=== PATIENT | female | born 1950 ===

== ENCOUNTER 2025-01-04 10:36 | Outpatient (AMB) | payer MEDICARE, SELFPAY ==
--- OUTSIDE RECORDS SUMMARY | 2019-05-04 13:05 | XMS_ITS | Encounter Summary ---
Author Organization [facility] Address [address] [facility] [address] [place] [address] Phone Care Team Providers Care [place] Name Role Phone Christie Campos MD Primary Care Provider [phone] Encounter Details Date Type Department Care Team (Late st Contact Info) Description 05/04/2019 12:05 PM EST Hospital Encounter [facility] [address] [place] [phone] Conner Shaffer, CIELO [address] [place] [address] [place] [address] Social History Tobacco Use Types Packs/Day Years [...] PM EST No acute fracture. POS - [id number] Narrative 05/04/2019 12:23 PM EST HISTORY: As [...] swelling. IMPRESSION: No acute fracture. POS - [id number] us Conner Shaffer [employer] SUPERVISOR IMG XR UPPER EXTREMITY Final Re sult documented in this encounter Visit Diagnoses Not on filedocumented in this encounter Care Teams [place] Relationship Specialty Start Date End Date Christie Campos MD PCP - General Internal Medicine 05/04/19 documented as of this encounter Additional Source Comments The information contained in this document represents components of the legal health record. It is not the complete legal health record.[facility]
--- OUTSIDE RECORDS SUMMARY | 2025-01-04 12:46 | XMS_ITS | Encounter Summary ---
Author Organization [facility] [address] Care Team Providers Care Meat Supervisor Name Role Phone Radha Bertrand Primary Care Provider Encounter Details Date Type Department Care Team (Late st Contact Info) Description 12/30/2024 Telephone [facility] - [facility] [address] [facility] [address] [place] [phone] Candelaria Sneed MD [address] [place] [address] [place] [phone] Social History Tobacco Use Types Packs/Day Years Used Date Smoking Tobacco: Never Smokeless Tobacco: Never Alcohol Use Standard Drinks/Week Comments Yes 0 (1 standard drink = 0.6 oz pur e alcohol) Comments No Sex and Gender Information Value Date Recorded Sex Assigned at Not on file Legal Sex Female 10:20 PM EST Gender Identity Not on file Sexual Orientation Not on file documented as of this encounter Progress Notes * Galdino Quintana - 12/31/2024 3:36 PM EDT Patient called and rescheduled for 02/22/25. * Dmitry Conteh - 12/30/2024 11:04 AM EDT Called patient to reschedule appointment with Dr. Sneed on 02/19, Dr. Sneed out of office. No answer, left message on machine for patient to call back when available. If patient calls back please reschedule to 02/22/2025 documented in this encounter Plan of Treatment Upcoming Encounters Date Type Department Care Team (Late st Contact Info) Description 02/22/2025 10:20 AM EDT Office Visit [facility] - [address] [facility] [address] [place] [phone] Candelaria Sneed MD [address] [place] [address] Dr [place] [address] [place] [phone] 12/20/2025 10:30 AM EDT Appointment [facility] [address] [place] [phone] documented as of this encounter Visit Diagnoses Not on filedocumented in this encounter Care Teams Meat Supervisor Relationship Specialty Start Date End Date Radha Bertrand PA [address] [place] [phone] PCP - General 09/18/24 documented as of this encounter
--- OUTSIDE RECORDS SUMMARY | 2025-01-04 12:46 | XMS_ITS | Clinical Summary ---
Author Organization [facility] Address [address] [facility] [address] [place] [address] Phone Care Team Providers Care Watch Crystal Molder Name Role Phone Christie Campos MD Primary Care Provider Allergies No known active allergies Medications atenolol (TENORMIN) 25 MG tablet Take 25 mg by mouth daily. 04/25/2019 Active finasteride (PROSCAR) 5 mg tablet Take 5 mg by mouth daily. 04/25/2019 Active lansoprazole (PREVACID) 30 MG capsule Take 30 mg by mouth. 02/27/2019 Active levothyroxine (SYNTHROID, LEVOTHROID) 75 MCG tablet Take 75 mcg by mouth daily. 02/25/2019 Active rosuvastatin (CRESTOR) 20 MG tablet Take 20 mg by mouth daily. 04/27/2019 Active Social History Tobacco Use Types Packs/Day Years [...] on file Sexual Orientation Not on file Last Filed Vital Signs Vital Sign Reading Time Taken Comments Blood Pressure 130/79 05/04/2019 11:55 AM EST Pulse 85 05/04/2019 11:55 AM EST Temperature 36.8 C (98.2 F) 05/04/2019 11:55 AM EST Respiratory Rate 18 05/04/2019 11:55 AM EST Oxygen Saturation 98% 05/04/2019 11:55 AM EST Inhaled Oxygen Concentration - - Weight - - Height - - Body Mass Index - - Plan of Treatment Health Maintenance Due Date Last Done Comments LIPID PANEL 1951 TSH LEVEL 1951 DEPRESSION SCREENING 1963 HEPATITIS C SCREENING 1969 SMOKING STATUS SCREENING (Once After 26 Yrs) 1977 MAMMOGRAM 1991 COLOGUARD 1996 COLONOSCOPY 1996 COLORECTAL CANCER SCREENING 1996 FIT TEST 1996 FOBT 1996 SIGMOIDOSCOPY 1996 VIRTUAL COLONOSCOPY 1996 OSTEOPOROSIS SCREENING INITIAL (ONE-TIME) 2016 Adult Td,Tdap Booster 07/26/2018 07/26/2008 INFLUENZA VACCINE (#1) 2024 0, 01/31/2018, 02/09/2014, Additional history exists COVID-19 VACCINE (2 - 2024- season) 2024 06/29/2020 RSV VACCINE (1 - 1-dose 75+ series) 2026 PNEUMOCOCCAL VACCINES (50+ years) Completed 06/13/2017, 04/18/2016 ZOSTER VACCINES Completed 02/23/2020, 11/28, 03/08/2011 HEPATITIS A VACCINES Aged Out No long er eligible based on patient's age to complete this topic HIB VACCINES Aged Out No longer eligi ble based on patient's age to complete this topic MENINGOCOCCAL VACCINES (ACWY) Aged Out No longer eligible based on patient's age to complete this topic MENINGOCOCCAL VACCINES (B) Aged Out N o longer eligible based on patient's age to complete this topic Medical Devices Not on file Insurance MEDICARE PART A & B Member Subscriber Plan / Payer (Ef fective 2018-Present) Name:Yolis Huertas Member ID:[id number] Relation to Subscriber:Self Name:Yolis Huertas Subscriber ID:[id number] Payer ID:[id number] Group ID:Not on file Type:Medicare Address: [employer] [address] [place] [phone] [facility] MEDICARE SUPPLEMENT MEDICARE PART A & B [facility] MEDICARE SUPPLEMENT MEDICARE PART A & B MEDICARE SUPPLEMENT MEDICARE PART A & B [facility] MEDICARE SUPPLEMENT MEDICARE PART A & B [facility] MEDICARE SUPPLEMENT MEDICARE PART A & B Member Subscriber Plan / Payer (Ef fective 2018-Present) Name:Yolis Huertas Member ID:[id number] Relation to Subscriber:Self Name:Yolis Huertas Subscriber ID:[id number] Payer ID:[id number] Group ID:Not on file Type:Medicare Address: [employer] [address] [place] [id number] [facility] MEDICARE SUPPLEMENT MEDICARE PART A & B [facility] MEDICARE SUPPLEMENT MEDICARE PART A & B [id number] [place] [address] MEDICARE SUPPLEMENT MEDICARE PART A & B [facility] MEDICARE SUPPLEMENT Care Teams Watch Crystal Molder Relationship Specialty Start Date End Date Christie Campos MD PCP - General Internal Medicine 05/04/19 Additional Source Comments The information contained in this document represents components of the legal health record. It is not the complete legal health record.[facility]
--- OUTSIDE RECORDS SUMMARY | 2025-01-04 12:46 | XMS_ITS | Clinical Summary ---
Author Organization [facility] Address [address] [place] [address] Phone Care Team Providers Care Supervisor Cemetery Workers Name Role Phone Radha Bertrand Primary Care Provider Allergies Active Allergy Reactions Criticality Noted Date Comments Minoxidil 12/24/2022 Heart palpitations Other 08/16/2015 Seasonal allergies Itchy, watery eye, Sneezing Medications rosuvastatin (CRESTOR) 40 mg tablet Take 1 Tablet by mouth daily. 4 Active levothyroxine (SYNTHROID, LEVOTHROID) 88 mcg tablet Take 1 Tablet by mouth daily. Active spironolactone (ALDACTONE) 50 mg tablet Take 1 Tablet by mouth 2 times daily. Active atenoloL (TENORMIN) 25 mg tablet Take 0.5 Tablets by mouth daily. Active CALCIUM CARBONATE ORAL Calcium Carb-Cholecalci ferol 600-10 MG-MCG Tab Take 1 Tablet by mouth daily. Active ZOLEDRONIC ACID IV Inject into the vein. Every 12 months Active lansoprazole (PREVACID) [address] capsule Take 1 capsule by mouth 2 times daily. 1 Active finasteride (PROSCAR) 5 mg tablet 1 Tablet daily. 9 Active UNABLE TO FIND Allergy Injection (ALLERGY MONTHLY INJECTION, HISTORIC) Inject as directed every 30 days. Active aspirin 81 mg EC tablet Take 81 mg by mouth daily. Active MULTIVITAMIN ORAL 1 BID Active estradioL (ESTRING) 2 mg (7.5 mcg /24 hour) vaginal ringIndications :Atrophic vaginitis Insert 2 mg into the vagina every 3 (three) months. follow package directions 1 each 3 5 09/23/19 26 Active Active Problems Problem Noted Date Diagnosed Date Hypertension 01/16/2024 Overview (05/08/2024): Last Assessment & Plan: Patient is slightly hypertensive at today's appointment with a blood pressure of 150 on 70. Will not alter medication regimen at this time, however I will have patient take blood pressure readings for the next 2 weeks and let the office know what those values are. She has been educated on signs of worsening symptoms and when to call the office or when to present to the ED. Lower extremity edema 01/16/2024 Overview (05/08/2024): Last Assessment & Plan: Scant lower extremity edema. Patient reports this is worse at night after she has been on her feet all day, and is barely noticeable in the morning. Patient has been educated that she should limit her sodium intake and can utilize compression stockings. She has been educated to report to the office if edema worsens, or will not go away. Endometrial polyp 07/07/2019 Post-menopausal bleeding 06/09/2019 DDD (degenerative disc disease), lumbosacral Prediabetes 02/18/2019 Bilateral hip pain 04/01/2018 Lumbar radiculopathy, chronic 04/01/2018 Cough variant asthma 07/30/2014 Panic disorder without agoraphobia 06/25/2014 Osteoporosis, postmenopausal 08/14/2012 Reflux esophagitis 05/17/2010 Overview (05/08/2024): EGD and duodenal bx Amber Mendez: reflux esophagitis. EGD normal 05/24/2010 on omeprazole 20 mg QAM. Hyperlipidemia 05/09/2010 Overview (05/08/2024): Last Assessment & Plan: Will need to obtain lipid values from PCP office. Patient currently utilizing rosuvastatin 40 mg p.o. Patient's target lipid value will be below 70. She has also been educated on a cardiac healthy diet. History of LA (myocardial infarction) 04/25/2010 Overview (05/08/2024): -Presented with acute chest pressure in March 2010, found to have dynamic T- wave inversions inferiorly with troponin of 0.51-status post cardiac catheterization showing no evidence of epicardial coronary disease during that admission; echocardiogram during the admission showed inferior hypokinesis with an ejection fraction that was preserved; continued on beta blockade, Plavix, aspirin, and eventually a statin (though this was not of her discharge paperwork) -Repeat echocardiogram most recently on 06/24/2014 showing preserved ejection fraction of 60% without regional wall motion abnormalities, increased left atrial pressure, normal RV size and systolic function, mild mitral and tricuspid regurgitation, mild pulmonic insufficiency -30 day event monitor in June 2014 showed no arrhythmias and normal sinus rhythm -Nuclear stress test-patient completed on 01/10/2023. Patient was found to have normal perfusion. There is no evidence of ischemia or infarct by myocardial perfusion imaging after attenuation correction at this adequate level of stress. Patient did have left-sided chest pressure that persisted throughout exercise though, as above, no ischemic changes were noted. The 3 times daily ratio is not significantly elevated. She has very high exercise capacity for age. Last Assessment & Plan: Patient should continue on current medication regiment which includes atenolol, rosuvastatin, aspirin. Recent nuclear stress test results were reassuring, showed no ischemia. Patient should continue to eat a cardiac healthy diet and exercise as tolerated. Will need to get updated lipid values. 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 Hypothyroidism 04/18/2005 Mitral valve disorder 04/18/2005 Overview (05/08/2024): IMO update Last Assessment & Plan: No murmur heard on exam today, echocardiograms for change in exam or new symptoms Idiopathic scoliosis and kyphoscoliosis 04/18/20 05 Syncope and collapse 04/18/2005 Overview (05/08/2024): -Has been on atenolol for this- this was previously considered a treatment and has lately been noted to be contraindicated; she actually cut her dose in half as she started having lightheadedness symptoms again a few years ago -She was started on another type of medication as well for this time -In retrospect, she wonders if this was related to hormonal changes as she was undergoing menopause -She has not syncopized for several years now Last Assessment & Plan: No recurrent lightheaded or syncopal symptoms on half dose of atenolol, continue; atenolol is now being used for blood pressure management it seems Encounters Date Type Department Care Team Description 12/30/2024 Telephone [facility] - [address] [place] [address] Candelaria Sneed MD 12/17/2024 10:45 AM EDT - 12/17/2024 11:59 PM EDT [facility] [address] [place] [address] Encounter for screening mammogram for breast cancer Discharge Disposition: Home or Self Care from Last 3 Months Immunizations Name Administration Dates Next Due Influenza trivalent, 0.5mL ( Fluad) 65yo and older 02/18/2019 Influenza trivalent, with pr eservative (Fluzone; Afluria) 6mo and older 02/18/2023,02/07/2022,02/28/2021,02/02,01/31/2018,02/12/2017,02/10/2016 ,02/03/2015,02/09/2014,01/28/2014,01/27,02/20/2012,03/01/2011, 0,01/28/2009,02/03/2008,02/18/2007,07/2004 Influenza, Unspecified 02/01/2016,02/03/2015 Pneumococcal conjugate 13 va lent (Prevnar 13, PCV13) 2mo and older 04/18/2016 Pneumococcal polysaccharide 23 valent (Pneumovax 23) 2yo and older 06/13/2017 SARS-COV-2 (COVID-19) Vaccin e, Unspecified 01/30/2022 Tdap Tetanus diptheria acell ular pertussis (Boostrix; Adacel) 7yo and older 10/16/2021,02/18/2019,07/26/2008 Zoster Live 03/08/2011 Zoster recombinant (Shingrix ) 19yo and older 02/23/2020,12/22/2019 Surgical History Surgery Date Site/Laterality Comments COLONOSCOPY 07/04/2004 PROCEDURE: HISTORICAL COLONOSCOPY; COMMENT: Amber; neg; r 11 y ESOPHAGOGASTRODUODENOSCOPY 08/20/07 PROCEDURE: KS ESOPHAGOGASTRODUODENOSCOPY TRANSORAL DIAGNOSTIC; COMMENT: mild erosive esophagitis; hiatal hernia. duodenal bx wnl. SECTION PROCEDURE: KS DELIVERY ONLY ESOPHAGOGASTRODUODENOSCOPY 05/24/2010 PROCEDURE: KS ESOPHAGOGASTRODUODENOSCOPY TRANSORAL DIAGNOSTIC; COMMENT: Normal on omeprazole 20 mg QAM. BREAST REDUCTION 1994 PROCEDURE: KS BREAST REDUCTION; COMMENT: date approx. OTHER SURGICAL HISTORY 07/10/2019 PROCEDURE: KS DILATION & CURETTAGE DX&/THER NONOBSTETRIC Medical History Medical History Date Comments Chronic lymphocytic thyroiditis 04/18/2005 DX:Chronic lymphocytic thyroiditis Unspecified hypothyroidism 04/18/2005 DX:Un specified hypothyroidism Syncope and collapse 04/18/2005 DX:Syncope and collapse Mitral valve disorders(424.0) 04/18/2005 DX :Mitral valve disorders(424.0) Scoliosis (and kyphoscoliosi s), idiopathic 04/18/2005 DX:Scoliosis (and kyphoscoli osis), idiopathic Anemia 09/02/2007 DX:Anemia; COMME NT: Hg electro normal Other specified personal his tory presenting hazards to health(V15.89) DX:Other specifie d personal history presenting hazards to health(V15.89) Other and unspecified hyperlipidemia 05/09/2010 DX:Other and unspecified hyperlipidemia Reflux esophagitis 05/17/2010 DX:Reflux eso phagitis Osteoporosis 08/14/2012 DX:Osteoporosis Historical Medical DX 02/12/2013 DX:Immunot herapy History of colonoscopy 09/27/2015 DX:Histor y of colonoscopy; COMMENT: 2004; difficult colonoscopy with a lot of colonic looping. Hypertension 01/16/2024 Family History Medical History Relation Name Comments Breast cancer Aunt mother's side Cataracts Brother Glaucoma Brother Lung cancer Brother Breast cancer Cousin Ulcerative colitis Daughter Cristal multiple colonic polyps Heart attack Father 65 Blindness Neg Hx Colon cancer Neg Hx Macular degeneration Neg Hx Ovarian cancer Neg Hx Strabismus Neg Hx Relation Name Status Comments Aunt Brother Alive Cousin Alive Daughter Cristal Alive Father Mother Social History Tobacco Use Types Packs/Day Years Used Date Smoking Tobacco: Never Smokeless Tobacco: Never Alcohol Use Standard Drinks/Week Comments Yes 0 (1 standard drink = 0.6 oz pur e alcohol) Comments No Sex and Gender Information Value Date Recorded Sex Assigned at Not on file Legal Sex Female 10:20 PM EST Gender Identity Not on file Sexual Orientation Not on file Obstetrics History * This document contains information received from the source organization and may not represent a complete record from that organization. Para Term AB IAB SAB Ectopic Multiple Livin g Live Births 2 1 1 1 1 Date Outcome GA Total Labor Labor/2nd/3rd Weight Sex Type Anes PTL Edna A1 A5 Name Clin 1974 976 34w 0d F CS-Un spec Epidur al Livin g Delivery Location:[facility] [place] Last Filed Vital Signs Vital Sign Reading Time Taken Comments Blood Pressure 151/70 09/14/2024 10:58 AM EDT Pulse 60 09/14/2024 10:58 AM EDT Temperature - - Respiratory Rate 15 08/28/2024 11:08 AM EDT Oxygen Saturation - - Inhaled Oxygen Concentration - - Weight 54 kg (119 lb) 12/17/2024 10:57 AM EDT Height 148.6 cm (4' 10.5 ) 12/17/2024 10:57 AM E DT Body Mass Index 24.45 12/17/2024 10:57 AM EDT Plan of Treatment Upcoming Encounters Date Type Department Care Team (Late st Contact Info) Description 02/22/2025 10:20 AM EDT Office Visit [facility] [address] [facility] [address] [place] [address] Candelaria Sneed MD [place] [id number] 12/20/2025 10:30 AM EDT [facility]ment [facility] [address] [address] Health Maintenance Due Date Last Done Comments RSV Immunization Adult Patients (1 - Risk 60-74 years 1-dose series) 2011 Colorectal Cancer Screening: Stool Based Tests (FOBT/FIT) 03/31/2022 Falls Risk Assessment 03/31/2022 Medicare Annual Wellness Visit 03/31/2022 Social Influencers of Health Screening 03/31/2022 Hypertension/CHF/CAD Annual BMP Blood Test 02/05/2024 06/24/2019 Depression Screening 04/29/2024 Cholesterol Screening (Lipid Panel) 05/19/2024 05/19/2019 COVID-19 Vaccine ( season) 2024 01/30/2022, 02/22/2021, 07/21/2020, Additional history exists Influenza Vaccine (#1) 2024 , 02/18/2023, 02/07/2022, Additional history exists Breast Cancer Screening 12/17/2026 12/18/19, 12/17/2023, 12/12/2022, Additional history exists Osteoporosis Screening (Bone Density Screening) 02/24/2029 02/24/2019, 02/13/2017 DTaP,Tdap,and Td Vaccines (4 - Td or Tdap) 10/17/2031 10/16/2021, 02/18/2019, 07/26/2008 Hepatitis C Screening Completed 08/16/2015 Pneumococcal Vaccine: 50+ Years Completed 06/13/2017, 04/18/2016 Zoster Vaccines Completed 02/23/2020, 11/28, 03/08/2011 HIB Vaccines Aged Out No longer eligi ble based on patient's age to complete this topic HPV Vaccines Aged Out No longer eligi ble based on patient's age to complete this topic Hepatitis A Vaccines Aged Out No long er eligible based on patient's age to complete this topic Hepatitis B Vaccines Aged Out No long er eligible based on patient's age to complete this topic IPV Vaccines Aged Out No longer eligi ble based on patient's age to complete this topic MMR Vaccines Aged Out No longer eligi ble based on patient's age to complete this topic Meningococcal ACWY Vaccine Aged Out N o longer eligible based on patient's age to complete this topic Meningococcal B Vaccine Aged Out No l onger eligible based on patient's age to complete this topic RSV Immunization Patients Under 20 months Aged Out No longer eligible based on patient's age to complete this topic Varicella Vaccines Aged Out No longer eligible based on patient's age to complete this topic Procedures Procedure Name Priority Date/Time Associated Diagnosis Comments MG MAMMO DIGITAL SCREENING W EJ BILAT Routine 12/17/2024 11:03 AM EDT Encounter for screening mammogram for breast cancer ANNUAL BMP BLOOD TEST Routine 06/24/2019 LIPID PANEL Routine 05/19/2019 DXA BONE DENSITY STUDY 1+ SITS AXIAL SKEL Routine 02/24/2019 9:50 AM EDT Age-related osteoporosis without current pathological fracture HEPATITIS C SCREENING Routine 08/16/2015 from Last 3 Months or Most Recently Relevant to Health Maintenance Results * MG Mammo Digital Screening w Ej bilat (12/17/2024 11:03 AM EDT) Anatomical Region Laterality Modality Breast Bilateral Mammography 12/17/2024 11:4 9 AM EDT Impressions 12/17/2024 5:41 PM EDT No mammographic evidence of malignancy. No suspicious interval change. A negative mammogram in the presence of a clinically suspicious palpable abnormality does not preclude the possibility of malignancy or alter the indications for biopsy. ASSESSMENT: BI-RADS 2: BENIGN RECOMMENDATION(S): 1: Routine screening mammogram BILATERAL in 1 year. [facility] location[facility] [address], [address] -------- FINAL REPORT -------- Dictated By: Braxton Villalobos Dictated Date: 12/17/2024 11:49 ET Assigned Physician: Braxton Villalobos Reviewed and Electronically Signed By: Braxton Villalobos Signed Date: 12/17/2024 17:41 ET Workstation ID: [id number] Transcribed By: Self Edit Transcribed Date: 12/17/2024 11:49 ET Narrative 12/17/2024 5:41 PM EDT EXAM: SCREENING MAMMOGRAPHY, BILATERAL HISTORY: SCREENING. Family history of breast cancer including maternal aunt. Breast reduction surgery 1994 COMPARISON: 12/16/23, 12/12/22, 12/08/21, 12/05/20 TECHNIQUE: Synthesized CC and MLO projections of each breast. Tomosynthesis of each breast in the CC and MLO projections. ADDITIONAL IMAGING: None Computer-aided detection was employed with the [employer] AI 3-D. TISSUE DENSITY: The breasts are heterogeneously dense, which may obscure small masses. (BI-RADS category C) FINDINGS: The architecture is unchanged and consistent with prior reduction surgery. RIGHT BREAST: No suspicious mass. No suspicious calcification. No new area distortion. No additional suspicious right breast findings LEFT BREAST: No suspicious mass. No suspicious calcification. No new area distortion. No additional suspicious left breast findings Procedure Note Braxton Villalobos MD - 12/17/2024 EXAM: SCREENING MAMMOGRAPHY, BILATERAL HISTORY: SCREENING. Family history of breast cancer including maternalaunt. Breast reduction surgery 1994 COMPARISON: 12/16/23, 12/12/22, 12/08/21, 12/05/20 TECHNIQUE: Synthesized CC and MLO projections of each breast.Tomosynthesis of each breast in the CC and MLO projections. ADDITIONAL IMAGING: None Computer-aided detection was employed with the [employer] Pro[employer] AI 3-D. TISSUE DENSITY: The breasts are heterogeneously dense, which may obscuresmall masses. (BI-RADS category C) FINDINGS: The architecture is unchanged and consistent with prior reductionsurgery. RIGHT BREAST: No suspicious mass. No suspicious calcification. No new area distortion.No additional suspicious right breast findings LEFT BREAST: No suspicious mass. No suspicious calcification. No new area distortion.No additional suspicious left breast findings IMPRESSION: No mammographic evidence of malignancy. No suspicious interval change. A negative mammogram in the presence of a clinically suspicious palpableabnormality does not preclude the possibility of malignancy or alter theindications for biopsy. ASSESSMENT: BI-RADS 2: BENIGN RECOMMENDATION(S): 1: Routine screening mammogram BILATERAL in 1 year. [facility] location[facility] [address], [address] -------- FINAL REPORT -------- Dictated By: Braxton Villalobos Dictated Date: 12/17/2024 11:49 ET Assigned Physician: Braxton Villalobos Reviewed and Electronically Signed By: Braxton Villalobos Signed Date: 12/17/2024 17:41 ET Workstation ID: [id number] Transcribed By: Self Edit Transcribed Date: 12/17/2024 11:49 ET us Self Referral Sppl IMG BI PROCEDURES Final Resul t * Annual BMP Blood Test (06/24/2019) Annual BMP Blood Test abstracted Historical Provider HEALTH MAINTENANCE Final Result * Lipid panel (05/19/2019) LDL/HDL Ratio 3 0 - 4 Triglycerides 135 0 - 150 mg/dL Cholesterol 150 0 - 200 mg/dL HDL 57 >=40 mg/dL LDL Cholesterol 66 0 - 100 mg/dL Blood Venous blood specimen / Unknown Historical Provider LAB BLOOD ORDERABLES Sakshi l Result * DXA BONE DENSITY STUDY 1+ SITS AXIAL SKEL (02/24/2019 9:50 AM EDT) Anatomical Region Laterality Modality Bone Densitometr y 02/11/2019 8:12 AM EDT Narrative 02/24/2019 4:44 PM EDT BONE DENSITY Lumbar Spine T-score is -2.3 (SD relative to 20-29 y/o adult) Z-score is -0.4 (SD relative to age matched peers) This is consistent with osteopenia by criteria defined by the WHO. Left Hip T-score is -3.3 Z-score is -1.6 This is consistent with osteoporosis by criteria defined by the WHO. Comparison exam(s): significant decrease in bone density of hip when compared to most recent bone density examination Confidence level is +/-95%. Impression: Based on the World Health Organization criteria, Andressa A Aleksandar should be classified as having osteoporosis. The [facility] Department of Internal Medicine recommends using National Osteoporosis Foundation (NOF) guidelines in treatment decisions related to osteoporosis. NOF guidelines suggest considering treatment for postmenopausal women and men aged 50 or older presenting with the following: History of hip or vertebral fracture. T-score less than or equal to -2.5 (DXA) at the femoral neck, total hip, or spine, after appropriate evaluation to exclude secondary causes. Low bone mass (T-score between -1.0 and -2.5 at the femoral neck or spine) AND a 10-year probability of a hip fracture greater than or equal to 3% OR a 10-year probability of a major osteoporosis-related fracture greater than or equal to 20% based on the [place]-adapted WHO algorithm Please note that all treatment decisions require clinical judgment and consideration of individual patient factors, including patient preferences, co-morbidities, previous drug use, risk factors not captured in the FRAX model (e.g., frailty, falls, vitamin D deficiency, increased bone turnover, interval significant decline in bone density) and possible under- or over-estimation of fracture risk by FRAX. Procedure Note Doc Thompson - 04/17/2022 BONE DENSITY Lumbar Spine T-score is -2.3 (SD relative to 20-29 y/o adult) Z-score is -0.4 (SD relative to age matched peers) This is consistent with osteopenia by criteria defined by the WHO. Left Hip T-score is -3.3 Z-score is -1.6 This is consistent with osteoporosis by criteria defined by the WHO. Comparison exam(s): significant decrease in bone density of hip whencompared to most recent bone density examination Confidence level is +/-95%. Impression: Based on the World Health Organization criteria, Andressa Huertas should beclassified as having osteoporosis. The [facility] Department of Internal Medicine recommendsusing National Osteoporosis Foundation (NOF) guidelines in treatmentdecisions related to osteoporosis. NOF guidelines suggest consideringtreatment for postmenopausal women and men aged 50 or older presentingwith the following: History of hip or vertebral fracture. T-score less than or equal to -2.5 (DXA) at the femoral neck, total hip,or spine, after appropriate evaluation to exclude secondary causes. Low bone mass (T-score between -1.0 and -2.5 at the femoral neck or spine)AND a 10-year probability of a hip fracture greater than or equal to 3% ORa 10-year probability of a major osteoporosis-related fracture greaterthan or equal to 20% based on the [place]-adapted WHO algorithm Please note that all treatment decisions require clinical judgment andconsideration of individual patient factors, including patientpreferences, co-morbidities, previous drug use, risk factors not capturedin the FRAX model (e.g., frailty, falls, vitamin D deficiency, increasedbone turnover, interval significant decline in bone density) and possibleunder- or over-estimation of fracture risk by FRAX. Bonnie Norton MD IMG DXA PROCEDURES Final Result * Hepatitis C Screening (08/16/2015) [facility] Hepatitis C Screening abstracted Historical Provider HEALTH MAINTENANCE Final Result from Last 3 Months or Most Recently Relevant to Health Maintenance Insurance MEDICARE [facility] Care Teams Supervisor Cemetery Workers Relationship Specialty Start Date End Date Radha Bertrand PA [address] [place] [address] PCP - General 09/18/24
== END 2025-01-04 10:55 | disposition home or self-care (01) ==
LOC: HO.HMGAL 10:36
PROVIDERS: PCP Internal Medicine Endocrinology, Diabetes & Metabolism; Visit Provider Registered Nurse Emergency
DX: J30.89 Other allergic rhinitis (principal)
CPT/HCPCS: 95117; 95165

== ENCOUNTER 2025-02-15 11:30 | Outpatient (AMB) | payer MEDICARE, SELFPAY | END 2025-02-15 11:31 | disposition home or self-care (01) | LOC: HO.HMGAL 11:30 | PROVIDERS: PCP Internal Medicine Endocrinology, Diabetes & Metabolism; Visit Provider Registered Nurse Emergency | DX: J30.89 Other allergic rhinitis (principal) | CPT/HCPCS: 95117; 95165 ==

== ENCOUNTER 2025-03-22 13:22 | Outpatient (AMB) | payer MEDICARE, SELFPAY ==
--- OUTSIDE RECORDS SUMMARY | 2019-05-04 12:05 | XMS_ITS | Encounter Summary ---
Author Organization [facility] Address [address] [facility] [address] [place] [address] Phone Care Team Providers Care Dice Spotter Name Role Phone Christie Campos MD Primary Care Provider + [phone] Encounter Details Date Type Department Care Team (Late st Contact Info) Description 05/04/2019 12:05 PM EST Hospital Encounter [facility] [address] [place] [id number] Conner Shaffer, CIELO [address] [place] [address] [place] [address] Social History Tobacco Use Types Packs/Day Years Used Date Smoking Tobacco: Never Smokeless Tobacco: Never Education Answer Date Recorded Are you interested in more education? Not on charlotte e 08/24/2022 Are you concerned about learning? Not on file 08/24/2022 No 08/24/2022 No 08/24/2022 Digital Access Answer Date Recorded No 09/22/2022 No 09/22/2022 No 09/22/2022 Reliable internet access at home? Not on file 09/22/2022 Device with a working camera? Not on file Comments Unknown Sex and Gender Information Value Date Recorded Sex Assigned at Not on file Legal Sex Female 11:43 AM EST Gender Identity Not on file Sexual Orientation Not on file documented as of this encounter Plan of Treatment Not on file documented as of this encounter Procedures Procedure Name Priority Date/Time Associated Diagnosis Comments XR WRIST 3 OR MORE VIEWS (RIGHT) Urgent/patient waiting 05/04/2019 12:14 PM EST Injury of right wrist, initial encounter documented in this encounter Results * XR WRIST 3 OR MORE VIEWS (RIGHT) (05/04/2019 12:14 PM EST) Anatomical Region Laterality Modality Wrist Right Radiographic Christina ging 05/04/2019 12:2 2 PM EST Impressions 05/04/2019 12:23 PM EST No acute fracture. POS - [id number] Narrative 05/04/2019 12:23 PM EST HISTORY: As above. COMPARISON: None. RIGHT WRIST RADIOGRAPH FINDINGS: Six views obtained including navicular views. No acute fracture or malalignment. Joint spaces are preserved. No bone lesions. No soft tissue swelling. Procedure Note Abigail Saavedra MD - 05/04/2019 HISTORY: As above. COMPARISON: None. RIGHT WRIST RADIOGRAPH FINDINGS: Six views obtained including navicular views. No acute fracture or malalignment. Joint spaces are preserved. No bonelesions. No soft tissue swelling. IMPRESSION: No acute fracture. POS - [id number] us Conner Shaffer V[employer] TECH[employer] INSTRUCTOR IMG XR UPPER EXTREMITY Final Re sult documented in this encounter Visit Diagnoses Not on filedocumented in this encounter Care Teams Dice Spotter Relationship Specialty Start Date End Date Christie Campos MD PCP - General Internal Medicine 05/04/19 documented as of this encounter Additional Source Comments The information contained in this document represents components of the legal health record. It is not the complete legal health record.[facility]
--- OUTSIDE RECORDS SUMMARY | 2025-03-22 18:01 | XMS_ITS | Clinical Summary ---
Author Organization [facility] Address [address] [place] [address] Phone Care Team Providers Care Change Management Lead Name Role Phone Radha Bertrand Primary Care Provider Allergies Active Allergy Reactions Criticality Noted Date Comments Minoxidil 12/24/2022 Heart palpitations Other 08/16/2015 Seasonal allergies Itchy, watery eye, Sneezing Medications levothyroxine (SYNTHROID, LEVOTHROID) 88 mcg tablet Take [...] follow package directions 1 each 3 5 01/29/20 26 Active rosuvastatin (CRESTOR) 40 mg tablet Take 1 tablet by mouth once daily 90 tablet 3 5 Active hortencia, Zingiber officinalis, 500 mg capsule Take by mouth. Active Active Problems Problem Noted Date Diagnosed [...] 05/17/2010 Overview (05/08/2024): EGD and duodenal bx 2007Amber: reflux esophagitis. EGD normal 05/24/2010 on omeprazole 20 mg QAM. Hyperlipidemia 05/09/2010 Overview (05/08/2024): Last Assessment & Plan: Will need to obtain lipid values from PCP office. Patient currently utilizing rosuvastatin 40 mg p.o. Patient's target lipid value will be below 70. She has also been educated on a cardiac healthy diet. History of OK (myocardial infarction) 04/25/2010 Overview (05/08/2024): -Presented with [...] Encounters Date Type Department Care Team Description 03/08/2025 Telephone [facility] Cardiology [facility] [address] [facility] [address] [place] [address] Candelaria Sneed MD 02/22/2025 10:20 AM EDT Office Visit [facility] Cardiology [facility] [address] [facility] [address] [place] [address] Candelaria Sneed MD History of OK (myocardial infarction) (Primary Dx); Mitral valve disorder; Hyperlipidemia, unspecified hyperlipidemia type; Primary hypertension 12/30/2024 Telephone [facility] Cardiology [facility] [address] [facility] [address] [place] [address] Candelaria Sneed MD from Last 3 Months Immunizations Immunization Administration Dates Next Due Influenza trivalent, 0.5mL [...] neg; r 10 y ESOPHAGOGASTRODUODENOSCOPY 08/20/07 PROCEDURE: ND ESOPHAGOGASTRODUODENOSCOPY TRANSORAL DIAGNOSTIC; COMMENT: mild erosive esophagitis; hiatal hernia. duodenal bx wnl. SECTION PROCEDURE: ND DELIVERY ONLY ESOPHAGOGASTRODUODENOSCOPY 05/24/2010 PROCEDURE: ND ESOPHAGOGASTRODUODENOSCOPY TRANSORAL DIAGNOSTIC; COMMENT: Normal on omeprazole 20 mg QAM. BREAST REDUCTION 1994 PROCEDURE: ND BREAST REDUCTION; COMMENT: date approx. OTHER SURGICAL HISTORY 07/10/2019 PROCEDURE: ND DILATION & CURETTAGE DX&/THER NONOBSTETRIC Medical History [...] CS-Un spec Epidur al Livin g [place] [place] Last Filed Vital Signs Vital Sign Reading Time Taken Comments Blood Pressure 122/66 02/22/2025 10:22 AM EDT Pulse 70 02/22/2025 10:22 AM EDT Temperature - - Respiratory Rate 15 08/28/2024 11:08 AM EDT Oxygen Saturation 98% 02/22/2025 10:22 AM EDT Inhaled Oxygen Concentration - - Weight 56.2 kg (124 lb) 02/22/2025 10:22 AM EDT Height 147.3 cm (4' 10 ) 02/22/2025 10:22 AM EDT Body Mass Index 25.92 02/22/2025 10:22 AM EDT Plan of Treatment Upcoming Encounters Date Type Department Care Team (Late st Contact Info) Description 05/07/2025 10:50 AM EST Office Visit [facility] [address] [place] [phone] Candelaria Sneed MD [facility] [place] [address] 12/20/2025 10:30 AM EDT [facility]ointment [facility] [address] [place] [phone] Health Maintenance Due Date Last Done Comments RSV Immunization Adult Patients (1 - Risk 50-74 years 1-dose series) 2001 Colorectal Cancer Screening: Stool Based Tests (FOBT/FIT) 03/31/2022 Falls Risk Assessment 03/31/2022 Medicare Annual Wellness Visit 03/31/2022 Social Influencers of Health Screening 03/31/2022 Hypertension/CHF/CAD Annual BMP Blood Test 02/05/2024 06/24/2019 Depression Screening 04/29/2024 Cholesterol Screening (Lipid Panel) 05/19/2024 05/19/2019 COVID-19 Vaccine ( season) 2024 01/30/2022, 02/22/2021, 07/21/2020, Additional history exists Breast Cancer Screening 12/17/2026 12/18/19, 12/17/2023, 12/12/2022, Additional history exists Osteoporosis Screening (Bone Density Screening) 02/24/2029 02/24/2019, 02/13/2017 DTaP,Tdap,and Td Vaccines (4 - Td or Tdap) 10/17/2031 10/16/2021, 02/18/2019, 07/26/2008 Hepatitis C Screening Completed 08/16/2015 Pneumococcal Vaccine: 50+ Years Completed 06/13/2017, 04/18/2016 Zoster Vaccines Completed 02/23/2020, 11/28, 03/08/2011 Influenza Vaccine Completed 02/09/2025, , 02/18/2023, Additional history exists HIB Vaccines Aged Out No longer eligi [...] Procedure Name Priority Date/Time Associated Diagnosis Comments ECG 12-LEAD Routine 02/22/2025 10:28 AM EDT Mitral valve disorder History of OK (myocardial infarction) MG MAMMO DIGITAL SCREENING W EJ BILAT [...] year. [facility]amm[facility] location[facility] [address], [address] -------- FINAL REPORT -------- Dictated By: Braxton Villalobos Dictated Date: 12/17/2024 11:49 ET Assigned Physician: Braxton Villalobos Reviewed and Electronically Signed By: Braxton Villalobos Signed Date: 12/17/2024 17:41 ET Workstation ID: [id number] Transcribed By: Self Edit Transcribed Date: 12/17/2024 [...] None Computer-aided detection was employed with the [email or web address] AI 3-D. TISSUE DENSITY: The breasts are [...] None Computer-aided detection was employed with the [email or web address] AI 3-D. TISSUE DENSITY: The breasts are [...] year. Mamm[facility] location: [facility] [address], [address] -------- FINAL REPORT -------- Dictated By: Braxton Villalobos Dictated Date: 12/17/2024 11:49 ET Assigned Physician: Braxton Villalobos Reviewed and Electronically Signed By: Braxton Villalobos Signed Date: 12/17/2024 17:41 ET Workstation ID: [id number] Transcribed By: Self Edit Transcribed Date: 12/17/2024 11:49 ET us Self Referral Sppl IMG BI PROCEDURES Final Resul t * Annual BMP Blood Test (06/24/2019) Pathologist [facility] Annual BMP Blood Test abstracted Historical Provider HEALTH MAINTENANCE Final Result * Lipid panel (05/19/2019) Pathologist [facility] LDL/HDL Ratio 3 0 - 4 Triglycerides [...] World Health Organization criteria, Andressa Huertas should be classified as having osteoporosis. [facility] Department of Internal Medicine recommends using National [...] Huertas should beclassified as having osteoporosis. [facility] Department of Internal Medicine recommendsusing National Osteoporosis [...] fracture risk by FRAX. Bonnie Norton MD [facility] [place]XA PROCEDURES Final Result * Hepatitis C Screening (08/16/2015) [facility] Hepatitis C Screening abstracted Historical Provider HEALTH MAINTENANCE Final Result from Last 3 Months or Most Recently Relevant to Health Maintenance Insurance MEDICARE [facility] Care Teams Change Management Lead Relationship Specialty Start Date End Date Radha Bertrand PA [address] [place] [phone] PCP - General 09/18/24
--- OUTSIDE RECORDS SUMMARY | 2025-03-22 18:01 | XMS_ITS | Encounter Summary ---
Author Organization [facility] [address] Care Team Providers Care Production Line Welder Name Role Phone Radha Bertrand Primary Care Provider Reason for Visit * Reason Onset Date Comments appointment scheduling 03/08/2025 Encounter Details Date Type Department Care Team (Late st Contact Info) Description 03/08/2025 Telephone [facility] [address] [place] [address] Candelaria Sneed MD [address] [place] [address] [place] [phone] Social History Tobacco Use Types Packs/Day Years [...] as of this encounter Progress Notes * Adelita House - 03/08/2025 9:17 AM EST Called patient to schedule her 2 month follow up appointment with Linus Veras NP in March, per patient she only wants to have follow up with Dr Sneed. I did tell patient that Dr Sneed had wrotein her check out notes that f/u could be with her JOSE GUADALUPE or herself so that is why LINUS appt was offered. I did tell the patient that Dr Sneed has no availability in the time frame she wants the patient to follow up. Patient asked if she could get a call back when an available appt with Dr Sneed is avail, I also told patient to call back periodically to see if there has been any cancellations for Dr Sneed. documented in this encounter Plan of Treatment Upcoming Encounters Date Type Department Care Team (Late st Contact Info) Description 05/07/2025 10:50 AM EST Office Visit [facility] [address] [facility] [address] [place] [phone] Candelaria Sneed MD [address] [place] [address] [place] [phone] 12/20/2025 10:30 AM EDT Appointment [facility] [address] [phone] documented as of this encounter Visit Diagnoses Not on filedocumented in this encounter Care Teams Production Line Welder Relationship Specialty Start Date End Date Radha Bertrand PA [address] [place] [address] PCP - General 09/18/24 documented as of this encounter
--- OUTSIDE RECORDS SUMMARY | 2025-03-22 18:01 | XMS_ITS | Clinical Summary ---
Author Organization [facility] Address [address] [facility] [address] [place] [address] Phone Care Team Providers Care Assessment Director Name Role Phone Christie Campos MD Primary [...] file Insurance MEDICARE PART A & B [facility] MEDICARE SUPPLEMENT MEDICARE PART A & B [facility] MEDICARE SUPPLEMENT MEDICARE PART A & B MEDICARE SUPPLEMENT MEDICARE PART A & B MEDICARE SUPPLEMENT MEDICARE PART A & B [facility] MEDICARE SUPPLEMENT MEDICARE PART A & B [facility] MEDICARE SUPPLEMENT MEDICARE PART A & B [facility] MEDICARE SUPPLEMENT MEDICARE PART A & B MEDICARE SUPPLEMENT MEDICARE PART A & B [facility] MEDICARE SUPPLEMENT Care Teams Assessment Director Relationship Specialty Start Date End Date Christie Campos MD PCP - General Internal Medicine 05/04/19 Additional Source Comments The information contained in this document represents components of the legal health record. It is not the complete legal health record.[facility]
== END 2025-03-22 13:23 | disposition home or self-care (01) ==
LOC: HO.HMGAL 13:22
PROVIDERS: PCP Internal Medicine; Visit Provider Registered Nurse Emergency
DX: J30.89 Other allergic rhinitis (principal)
CPT/HCPCS: 95117; 95165